=== PATIENT | male | born 1960 | race Caucasian/White ===

== ENCOUNTER 2019-03-28 13:02 | Inpatient (IN) | payer OTHER ==
--- NOTE | 2019-03-28 13:08 | ED ---
GI/ HPI - HPI Summary HPI Summary: This patient is a 59 year old male presenting to [facility] with a chief complaint of GI bleed. The patient states he had an episode of hematemesis after eating breakfast a couple hours ago. He states he had gastric bypass surgery 5 years ago.He states the vomit is bright red and it has occurred [address] Zaidi, surgery, did the gastric bypass on the patient. Pt denies any fever, chills, erythema of eyes, sore throat, CP, SOB, cough, abdominal pain, N/V, dysuria, hematuria, myalgia, edema, rash, or dizziness. - History of Current Complaint Stated Complaint: GI BLEED PER EMS Hx Obtained From: Patient Onset/Duration: Started Hours Ago Associated Signs and Symptoms: Positive: Hematemesis, Vomiting - Additional Pertinent History Primary Care Physician: SONIYA - Allergy/Home Medications Allergies/Adverse Reactions: Allergies Allergy/AdvReac Type Severity Reaction Status Date / Time MS No Known Drug Allergy Allergy Unknown Verified 11/18/15 09:27 [No Known Drug Allergy] Reaction Details ENVIRONMENTAL/HAYFEVER Allergy Runny Nose Uncoded 11/17/15 12:10 PMH/Surg Hx/FS Hx/Imm Hx Endocrine/Hematology History: Reports: Hx Diabetes - TYPE 1, Hx Thyroid Disease - HYPOTHYROIDISM Cardiovascular History: Reports: Hx Coronary Artery Disease - CHOLESTEROL CONTROL WITH MEDICATIONS, Other Cardiovascular Problems/Disorders - DR. VERITO MD: STRESS TEST 11/2013; CARDIAC CATH 12/18/2013 Denies: Hx Hypertension GI History: Reports: Other GI Disorders - GASTRIC BYPASS Denies: Hx Gastroesophageal Reflux Disease Musculoskeletal History: Reports: Hx Arthritis, Other Musculoskeletal History - DJD Sensory History: Reports: Hx Contacts or Glasses - GLASSES TO DRIVE ONLY Denies: Hx Hearing Aid Opthamlomology History: Reports: Hx Contacts or Glasses - GLASSES TO DRIVE ONLY - Surgical History Surgery Procedure, Year, and Place: 1985 MIDLINE HERNIA REPAIR, [facility]. AGE 3 LEFT SMALL FINGER REATTACHMENT. 12/2013 LEFT HEART CATETERIZATION, CORONARY ANGIOGRAM, LEFT VENTRICULOGRAPHY, [place]. 2012 COLONOSCOPY, [facility]. March 2014 Gastric by pass and hernia repair. 2013 ENDOSCOPY, [facility] Hx Anesthesia Reactions: No - Social History Alcohol Use: Rare Substance Use Type: Reports: None Smoking Status (MU): Never Smoked Tobacco Review of Systems Negative: Fever, Chills Negative: Erythema Negative: Sore Throat Negative: Chest Pain Negative: Shortness Of Breath, Cough Positive: Vomiting - Hematemesis. Negative: Abdominal Pain, Nausea Negative: dysuria, hematuria Negative: Edema Negative: Rash Neurological: Other - Neg: Dizziness All Other Systems Reviewed And Are Negative: No Physical Exam - Summary Physical Exam Summary: Constitutional: Well-developed, Well-nourished, Alert. (-) Distressed Skin: Warm, Dry HENT: Normocephalic; Atraumatic Eyes: Conjunctiva normal Neck: Musculoskeletal ROM normal neck. (-) JVD, (-) Stridor, (-) Tracheal deviation Cardio: Rhythm regular, rate normal, Heart sounds normal; Intact distal pulses; The pedal pulses are 2+ and symmetric. Radial pulses are 2+ and symmetric. (-) Murmur Pulmonary/Chest wall: Effort normal. (-) Respiratory distress, (-) Wheezes, (-) Rales Abd: Soft, (-) tenderness, (-) Distension, (-) Guarding, (-) Rebound Musculoskeletal: (-) Edema Lymph: (-) Cervical adenopathy Neuro: Alert, Oriented x3 Psych: Mood and affect Normal Triage Information Reviewed: Yes Vital Signs On Initial Exam: Temp Pulse Resp BP Pulse Ox 97.8 F 96 17 160/70 98 03/28/19 13:10 03/28/19 13:10 03/28/19 13:10 03/28/19 13:10 03/28/19 13:10 Vital Signs Reviewed: Yes Procedures - Sedation Patient Received Moderate/Deep Sedation with Procedure: No GIGU Course/Dx - Course Course Of Treatment: This patient is a 59 year old male presenting to [facility] with a chief complaint of GI bleed/hematemesis. Patient had Gastric Bypass surgery [address] Dior, GI, recommended NPO diet and endoscopy. Dr. Diaz, hospitalist, accepted the patient for admission. The patient was administered Protonix IV and NS in the ED. The plan for admission was discussed with the patient and he was agreeable with this plan. - Diagnoses Provider Diagnoses: Hematemesis - Physician Notifications Discussed Care Of Patient With: Seymour Dior - GI Time Discussed With Above Provider: 13:15 - Recommended NPO diet and endoscopy today Instructed by Provider To: Admit As Inpatient Discharge ED - Sign-Out/Discharge Documenting (check all that apply): Patient Departure - Admission - Discharge Plan Condition: Stable Disposition: ADMITTED TO [facility] Referrals: Analisa Flannery MD [Primary Care Provider] - - Attestation Statements Document Initiated by Scribe: Yes Documenting Scribe: Tiburcio Drummond Provider For Whom Scribe is Documenting (Include Credential): Ced Sherman MD Scribe Attestation: ITiburcio, scribed for Ced Sherman MD on 03/28/19 at 1314. Status of Scribe Document: Ready
[2019-03-28] MEDS ORDERED: NS 0.9% 1000 ML** 1,000 ML IV ONE (13:11)
[2019-03-28] MEDS ORDERED: Pantoprazole* 80 mg IN NS 80 MG/250 ML BAG IV ONE (13:11)
[2019-03-28 13:41] LABS: ABS Lymphocytes 0.8 10^3/ul (1.0-4.8); ABS Monocytes 0.3 10^3/ul (0-0.8); ABS Neutrophils 10.5 10^3/ul (1.5-7.7); Eosinophil % 0.1 %; Hematocrit 34 % (42-52); Hemoglobin 11.6 g/dL (14.0-18.0); Lymphocyte % 6.7 %; Mean Corpuscular HGB Conc 34 g/dL (31-36); Mean Corpuscular Hemoglobin 29 pg (27-31); Mean Corpuscular Volume 86 fL (80-94); Mean Platelet Volume 9.3 fL (7.4-10.4); Nucleated Red Blood Cells % 0.1; Platelet Count 178 10^3/uL (150-450); Red Blood Count 3.98 10^6 /uL (4.18-5.48); Red Cell Distribution Width 13 % (10-15); White Blood Count 11.6 10^3/uL (3.5-10.8)
[2019-03-28 13:52] LABS: Albumin 3.6 g/dL (3.2-5.2); Calcium 8.4 mg/dL (8.6-10.3); Potassium 4.4 mmol/L (3.5-5.0); Total Bilirubin 0.5 mg/dL (0.2-1.0)
[2019-03-28 13:59] LABS: Albumin/Globulin Ratio 1.4 (1-3); BUN/Creatinine Ratio 38.2 (8-20); C Reactive Protein 2.85 mg/L (<8.01); EGFR African American 126.6 (>60); EGFR Non-African American 104.6 (>60); Globulin 2.6 g/dL (2-4); Total Protein 6.2 g/dL (6.4-8.9)
[2019-03-28] MEDS ORDERED: Zolpidem TAB* 10 MG PO PRN (15:22)
[2019-03-28] MEDS ORDERED: Dextrose 50% VIAL 50 ml IV PUSH PRN (15:26)
[2019-03-28] MEDS ORDERED: fentaNYL* 50 MCG/ML 2 ML VIAL (100 MCG VIAL) ONE (16:09)
[2019-03-28] MEDS ORDERED: Midazolam* 1 MG/ML 10 ML VIAL (10 MG) ONE (16:09)
--- NOTE | 2019-03-28 17:15 | HP ---
CC: PRINCESS Ortiz; Dr. Dior * HISTORY AND PHYSICAL: DATE OF ADMISSION: 03/28/19 TIME OF EVALUATION: 2:30 p.m. PRIMARY CARE PROVIDER: PRINCESS Ortiz CONSULTING OPERATIONS PROCESSOR: Dr. Dior. CHIEF COMPLAINT: "I was vomiting blood." HISTORY OF PRESENT ILLNESS: Mr. Paige is a 59-year-old male with a past medical history of obesity, status post Glenis-en-Y gastric bypass; type 2 diabetes; hypertension; hyperlipidemia; hypothyroidism; who presented to the emergency room with complaints of vomiting blood. The patient states that last night he had steak chips with onions and mushrooms for dinner and he went to bed feeling well. 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 He states that he started to feel some "weird sensation" in his stomach as if he were "coming down" with a stomach flu. He stopped the bus and he vomited and reports there was about a tablespoon of blood in the first episode. He called his and told her he was going to [place] and he states that on the way he vomited once, at [place] he vomited 3 to 4 times and he states that at that point the amount of bright red blood was a fourth of a cup. As [place] does not have GI on-call, he was transferred to our emergency room for further evaluation and the patient states that during transport he vomited once more. He states that the strange feeling in his stomach has resolved. He denies any abdominal pain. He had his gastric bypass 5 years ago and he states that he had no issues after that. He denies having endoscopy after the procedure and feels that overall he was doing well. His last bowel movement was this morning described as formed and brown. PAST MEDICAL HISTORY: 1. Obesity, status post Glenis-en-Y gastric bypass in March 2014. 2. Type 2 diabetes. 3. Hypothyroidism. 4. Hypertension. 5. GERD. 6. Hyperlipidemia. PAST SURGICAL HISTORY: 1. Status post laparoscopic Glenis-en-Y gastric bypass in 2013. 2. Status post open ventral hernia repair in 1987. MEDICATION LIST: 1. Lantus 32 units subcutaneously in the morning and 21 units subcutaneously at bedtime. 2. Irbesartan/hydrochlorothiazide 150/12.5 one tablet p.o. daily. 3. Levothyroxine 175 mcg p.o. daily. 4. Simvastatin 10 mg p.o. daily. 5. Zolpidem 12.5 mg p.o. at bedtime as needed for sleep. ALLERGIES: No known drug allergies. FAMILY HISTORY: His father passed at age 98. Mother had a history of diabetes , hypertension, obesity, heart disease, leukemia and passed of colon cancer. SOCIAL HISTORY: No history of tobacco, alcohol, or drug use. 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 Surrogate decision maker is his , Sofiya Paige, phone number is [phone]. REVIEW OF SYSTEMS: A 14-point review of systems was performed and all the pertinent negative and positive findings are in the HPI. PHYSICAL EXAMINATION GENERAL: The patient is a pleasant, obese gentleman, sitting up in the ED stretcher, in no acute distress. VITAL SIGNS: Temperature 97.8, heart rate is 94, respiratory rate is 17, oxygen saturation 98% on room air, blood pressure is 158/68. HEENT: Pupils are equal. Moist mucous membranes. CHEST: Breath sounds present bilaterally with no added sounds. CVS: Normal S1, S2. Regular rate and rhythm. ABDOMEN: Obese, soft, nontender, nondistended. Bowel sounds present. EXTREMITIES: No edema. NEURO: He is alert and oriented x3. Able to move all 4 extremities. Face is symmetric. Speech is clear. DIAGNOSTIC STUDIES/LAB DATA: The patient had a CBC that showed WBC 11.6, hemoglobin 11.6, hematocrit 34, platelets 178 with 90% neutrophils. Chemistry showed a sodium of 140, potassium of 4.4, chloride of 108, bicarb of 26, BUN of 29, creatinine 0.76, glucose is 252, lactic acid is 1.4, calcium is 8.4. LFTs are normal. ASSESSMENT AND PLAN: Mr. Paige is a 59-year-old male with a past medical history of obesity with BMI of 34, type 2 diabetes, hypertension, hyperlipidemia , hypothyroidism, who presents to the emergency room after multiple episodes of hematemesis, who is going to be admitted for an upper gastrointestinal bleed. 1. Upper gastrointestinal bleed. The patient describes hematemesis and has slight elevation of his BUN at 29 with a normal creatinine. I suspect that the patient likely has an anastomotic ulcer as the source of his bleed, but the differential would include peptic ulcer disease, Yvonne-Ovalle tears, and others. GI consultation was requested with Dr. Dior and the patient will have an upper endoscopy done today. We will continue Protonix drip. We will monitor his H and H. 2. Type 2 diabetes. I will reduce his Lantus dose to 15 units twice a day and continue lispro sliding scale. I will also check hemoglobin A1c. 3. Hypertension. It is controlled at this time. I will continue his irbesartan/hydrochlorothiazide with holding parameters. 4. Hypothyroidism. We will continue levothyroxine. 5. DVT prophylaxis: The patient has a score of 3 and pharmacological DVT prophylaxis is contraindicated in the setting of gastrointestinal bleed. The patient will have SCDs. 6. Code status is full. TIME SPENT: Approximately 60 minutes was spent with the patient's interview, medical records review, physical examination to complete this admission, more than half of this time was spent [id number] with the patient and coordination of care. [id number]/[facility] #: [id number] LORIE
--- NOTE | 2019-03-28 17:42 | PN ---
Progress Note - Progress Note Date of Service: 03/28/19 Note: GI Egd note E: nml Pouch: filled with clot, extensive and tediously suctioned, pouch normal GJ anastomosis 2cm ulcer with arterial pulsation. Injected with Epi 8cc 1:[id number] and 2 endoclips. No bleeding After Jejunum: old blood but no active bleeding for area visualized Rec: High risk for rebleed Monitor in ICU PPI gtt H/H q6 Keep 2 units of PRBC on hold at all times Seymour Dior DO 03/28/19 [id number]
[2019-03-28] MEDS: Insulin LISPRO* 1 UNITS UNIT SUBCUT SCH ×2 (18:52→22:27)
[2019-03-28] MEDS: Lactated Ringers 1000 ML Bag* 1,000 ML IV SCH (18:52)
[2019-03-28 19:18] LABS: ABS Lymphocytes 0.8 10^3/ul (1.0-4.8); ABS Monocytes 0.6 10^3/ul (0-0.8); Eosinophil % 0.1 %; Hematocrit 23 % (42-52); Hemoglobin 8.2 g/dL (14.0-18.0); Lymphocyte % 6.6 %; Mean Corpuscular HGB Conc 35 g/dL (31-36); Mean Corpuscular Hemoglobin 30 pg (27-31); Mean Corpuscular Volume 86 fL (80-94); Mean Platelet Volume 9.6 fL (7.4-10.4); Nucleated Red Blood Cells % 0.1; Platelet Count 158 10^3/uL (150-450); Red Blood Count 2.73 10^6 /uL (4.18-5.48); Red Cell Distribution Width 13 % (10-15); White Blood Count 12.4 10^3/uL (3.5-10.8)
--- NOTE | 2019-03-28 20:08 | CONS ---
CC: PRINCESS Ortiz * CONSULTATION REPORT: DATE OF CONSULT: 03/28/19 REQUESTING PHYSICIAN: Eliza Cummings MD REASON FOR CONSULTATION: Hematemesis. HISTORY OF PRESENT ILLNESS: This is a pleasant 59-year-old male with a past medical history of obesity, Glenis-en-Y gastric bypass, diabetes type 2, hypertension, hyperlipidemia, hypothyroidism, who presented to the ER in [place] after vomiting up blood. Yesterday evening, he felt well. He denied any abdominal pain. 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 He states that he started to feel some kind of cramping on to his stomach. He stopped the bus and then vomited and admits to as about a tablespoon of blood in the first episode. He then went to the [place] ER where he vomited up about a cupful of blood multiple times. He was then transferred to our emergency room as [place] does not have GI coverage. He denies any Motrin, ibuprofen, Aleve. He denies any alcohol use. He does not smoke. His gastric bypass surgery was in 2013. He denies any abdominal pain. Denies any diarrhea or constipation. He denies any black stools. He had some nausea and vomiting, but did not have a vomiting prodrome prior to his hematemesis. Denies any weight loss or gain. He is kind of stabilized around 250 pounds or so after his initial loss in the bypass. He states that he had a colonoscopy a few years ago that was completely cleaned; however, he does have a family history of colorectal cancer and was recommended another one in 5 years. The remainder of the 14-point review of systems is grossly negative. PAST MEDICAL HISTORY: 1. Obesity. 2. Glenis-en-Y gastric bypass in March 2014. 3. Type 2 diabetes. 4. Hypothyroidism. 5. Hypertension. 6. GERD. 7. Hyperlipidemia. PAST SURGICAL HISTORY: 1. Glenis-en-Y in 2013. 2. Open ventral hernia repair. 3. Colonoscopy a few years ago. MEDICATION LIST: 1. Lantus. 2. Irbesartan. 3. Hydrochlorothiazide. 4. Levothyroxine. 5. Simvastatin. 6. Zolpidem. ALLERGIES: No known drug allergies. FAMILY HISTORY: Maternal colorectal cancer. SOCIAL HISTORY: Denies any tobacco, alcohol, or drug use. 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 REVIEW OF SYSTEMS: Remainder of the 14-point review of systems is grossly negative. PHYSICAL EXAM: Vital Signs: Blood pressure is 160/70, pulse is 96, temperature is 97.8, he is 98% on room air. In general, alert and oriented x3, in no acute distress. HEENT: Atraumatic, normocephalic. Pupils equal, round, reactive to light. Extraocular movements are intact. Conjunctivae are pink. Sclerae are anicteric. Cardiovascular: Tachycardic. S1, S2. Respiratory: Clear to auscultation bilaterally. Abdomen: Soft, nontender, nondistended. Bowel sounds positive, obese. Extremities: No clubbing, no cyanosis, no edema. Neuro: Nonfocal. Psych: Appropriate mood and affect. DIAGNOSTIC STUDIES/LAB DATA: Hemoglobin 11.6, BUN 29, creatinine 0.76. Bilirubin 0.5, AST 14, ALT 15, platelet count is 178. ASSESSMENT AND PLAN: 1. This is a 59-year-old male with history of Glenis-en-Y gastric bypass, presenting with hematemesis, a wide differential, but top of this would be anastomotic ulcer. He does not have smoking or NSAIDs to precipitate, but still strong possibility, Yvonne-Ovalle is less likely. His platelet count is reasonable. I do not see any evidence of cirrhosis. He agrees with IV PPI drip. We will keep H and Hs every 6 hours. Recommend keeping the head of the bed elevated given the hematemesis. In addition, keep 2 units of PRBCs on hold. We will plan for emergent upper endoscopy today given that he is hemodynamically stable. 2. Acute blood loss anemia secondary to #1. 3. History of gastric bypass. We will keep n.p.o. for now. [id number]/[facility] #: [id number] [facility]INE HOSPITALChepe
[2019-03-28] MEDS: Insulin GLARGINE(*) 1 UNITS UNIT SUBCUT SCH (22:26)
--- NOTE | 2019-03-29 00:52 | PRO ---
CC: Dr. Yonas Gray; PRINCESS Ortiz * EGD REPORT: DATE OF PROCEDURE: 03/28/19 - ROOM #ICU-05 PRIMARY CARE PROVIDER: PRINCESS Ortiz INDICATION FOR PROCEDURE: Hematemesis. PROCEDURE PERFORMED: Complete esophagogastroduodenoscopy with hemostasis, Endoclip placement, and epinephrine injection. MEDICATIONS GIVEN: Include 16 mg IV midazolam. ESTIMATED BLOOD LOSS: About 10 mL. DESCRIPTION OF PROCEDURE: After the EGD procedure, including the risks, benefits, and alternatives, with the risks not limited to perforation, surgery, missed lesions, and/or were explained to the patient, written informed consent was obtained, IV medication was given, and a bite block was placed between the teeth. The adult Olympus gastroscope was then inserted into the patient's oropharynx, into the tubular esophagus. The distal esophagus had evidence of fresh blood after thorough washing. There was no distinct lesion within the esophagus. The scope was then advanced to the lower esophageal sphincter into the gastric pouch. There was extensive clot that filled the entirety of the lumen of the gastric pouch. I vigorously suctioned this repetitively and eventually was able to clear the majority of the clots and then push the remainder into the jejunum. I pushed even to the jejunum, there was no evidence of active bleeding there. I then returned to the pouch and washed the remainder of the wall. No active bleeding was seen within the pouch. However, at the GJ junction, a large 2 cm ulcer was visualized with arterial squirt. I injected the area with 8 cc of epinephrine circumferentially with good effect and then placed 2 Endoscopic clips over the squirting vessel. At the conclusion of this, no bleeding was noted. The scope was then removed from the patient. He tolerated the procedure well. I transferred the patient to the ICU at the conclusion of the procedure given the large upper GI bleed that was occurring. IMPRESSION: Forced grade 1A gastrojejuno-anastomotic ulceration status post endoscopic epinephrine injection and Endoclip placement with hemostasis. RECOMMENDATION: High risk for rebleeding given the classification and arterial squirt. No evidence of active bleeding at this time. Would monitor in ICU at least overnight. Monitor his blood count, suspect there will be an initial drop. We will keep the patient on an IV Protonix drip at all times for at least 72 hours. Avoid NSAIDs. Interestingly, he does not smoke or use NSAIDs, so the etiology of this ulceration may be purely anastomotic. We will keep H and H every 6 hours, keep 2 units of PRBCs on hold, keep the head of the bed elevated. I have discussed the case with Dr. Cummings, the patient's hospitalist. [id number]/[facility] #: [id number] [facility]
[2019-03-29] MEDS: Pantoprazole* 80 mg IN NS 80 MG/250 ML BAG IV SCH ×3 (01:25→21:14)
[2019-03-29] MEDS: Insulin LISPRO* 1 UNITS UNIT SUBCUT SCH ×5 (01:31→21:36)
[2019-03-29 01:39] LABS: Hematocrit 20 % (42-52); Hemoglobin 7.2 g/dL (14.0-18.0)
[2019-03-29] MEDS: Lactated Ringers 1000 ML Bag* 1,000 ML IV SCH ×2 (04:52→15:34)
[2019-03-29] MEDS: Levothyroxine INJ* 100 MCG/5 ML VIAL IV SCH (05:26)
[2019-03-29] MEDS: Atorvastatin* 10 MG TAB PO SCH ×2 (08:11→09:49)
[2019-03-29 08:12] LABS: ABS Eosinophils 0.1 10^3/ul (0-0.6); ABS Lymphocytes 2.2 10^3/ul (1.0-4.8); ABS Monocytes 0.6 10^3/ul (0-0.8); Eosinophil % 0.9 %; Hematocrit 22 % (42-52); Hemoglobin 7.8 g/dL (14.0-18.0); Lymphocyte % 22.1 %; Mean Corpuscular HGB Conc 36 g/dL (31-36); Mean Corpuscular Hemoglobin 31 pg (27-31); Mean Corpuscular Volume 85 fL (80-94); Mean Platelet Volume 9.1 fL (7.4-10.4); Platelet Count 179 10^3/uL (150-450); Red Blood Count 2.55 10^6 /uL (4.18-5.48); Red Cell Distribution Width 13 % (10-15); White Blood Count 9.8 10^3/uL (3.5-10.8)
[2019-03-29 08:26] LABS: Urine Appearance Clear; Urine Bilirubin Negative (Negative); Urine Blood Negative (Negative); Urine Color Yellow; Urine Glucose 3+(>=500 mg/dL) (Negative); Urine Ketones Trace (Negative); Urine Nitrite Negative (Negative); Urine Protein Negative (Negative); Urine Specific Gravity 1.026 (1.010-1.030); Urine Urobilinogen Negative (Negative)
[2019-03-29 08:37] LABS: BUN/Creatinine Ratio 45.9 (8-20); Calcium 7.8 mg/dL (8.6-10.3); EGFR African American 130.5 (>60); EGFR Non-African American 107.9 (>60); Potassium 3.5 mmol/L (3.5-5.0)
[2019-03-29] MEDS ORDERED: Losartan TAB* 25 MG PO SCH (09:00)
[2019-03-29] MEDS ORDERED: Hydrochlorothiazide TAB* 25 MG PO SCH (09:00)
[2019-03-29] MEDS: Insulin GLARGINE(*) 1 UNITS UNIT SUBCUT SCH ×2 (09:49→21:36)
--- NOTE | 2019-03-29 11:45 | PN ---
Progress Note - Progress Note Date of Service: 03/29/19 Note: Surgery Progress Note Patient is a 59 yo M with a history of morbid obesity s/p R-Y gastric bypass with Dr. Zaidi in 2013. Yesterday the patient was transferred [place] [facility] [place]. He said he was in his normal state of health until yesterday morning when he began to vomit blood. He says he had never had this happen before. He does not take NSAIDs routinely. He has been doing well since his bypass surgery and has had no complications. He underwent an upper endoscopy with Dr. Dior yesterday where a 2-3cm actively bleeding ulcer was identified at the gastro-jejunstomy. The ulcer base was successfully clipped and injected with epinephrine. I discussed this with Dr. Dior yesterday. Today he is doing well and his Hct has been stable at 20--> 22, although he did have a significant blood loss from his admission. He is comfortable, has no complaints of pain, and has had no further bleeding. He is in the ICU for close monitoring. On exam his abdomen is soft and non tender. I discussed with him that marginal ulcerations can sometimes occur at the G-J anastomosis after bypass surgery. He can expect he may have melena after his acute UGI bleed. After discharge I have asked him to follow up with [facility] as he has not been seen in several years since surgery.
--- NOTE | 2019-03-29 13:32 | PN ---
Subjective Date of Service: 03/29/19 Interval History: HOSPITALIST PROGRESS NOTE Patient seen and examined at bedside. Care reviewed and d/w Alfredo Olvera RN. He feels well today. Denies abdominal pain, N/V. No dizziness, lightheadedness, CP or palpitations. Had a brown BM today with "specks" of blood, as per RN. Family History: Unchanged from Admission Social History: Unchanged from Admission Past Medical History: Unchanged from Admission Objective Active Medications: Atorvastatin Calcium (Lipitor*) 5 mg PO DAILY [facility] Last Admin: 03/29/19 09:49 Dose: 5 mg Dextrose (Dextrose 50% Vial 50 Ml*) 25 ml IV PUSH .FOR FS < 60 - SS PRN PRN Reason: FS < 60 Lactated Ringer's (Lactated Ringers 1000 Ml Bag*) 1,000 mls @ 100 mls/hr IV PER RATE [facility] Last Admin: 03/29/19 04:52 Dose: 100 mls/hr Pantoprazole Sodium (Protonix Iv Bag*) 80 mg in 250 mls @ 25 mls/hr IV Q10H [facility] Last Admin: 03/29/19 11:33 Dose: 25 mls/hr Insulin Glargine (Lantus(*)) 15 units SUBCUT Q12H [facility] Last Admin: 03/29/19 09:49 Dose: 15 units Insulin Human Lispro (Humalog*) 0 units SUBCUT ACHS [facility]; Protocol Last Admin: 03/29/19 12:07 Dose: 3 units Levothyroxine Sodium (Synthroid Inj*) 88 mcg IV 0600 [facility] Last Admin: 03/29/19 05:26 Dose: 88 mcg Zolpidem Tartrate (Ambien Tab*) 10 mg PO BEDTIME PRN; Protocol PRN Reason: SLEEP Vital Signs - 8 hr 03/29/19 03/29/19 03/29/19 05:30 06:00 06:30 Pulse Rate 77 72 74 Respiratory 16 15 15 Rate Blood Pressure 128/58 95/56 106/55 (mmHg) O2 Sat by Pulse 98 97 99 Oximetry 03/29/19 03/29/19 03/29/19 07:00 07:44 08:00 Pulse Rate 94 85 90 Respiratory 13 16 18 Rate Blood Pressure 132/59 121/59 104/60 (mmHg) O2 Sat by Pulse 100 100 98 Oximetry 03/29/19 03/29/19 03/29/19 08:30 09:00 09:30 Pulse Rate 87 82 81 Respiratory 15 15 14 Rate Blood Pressure 95/54 102/54 121/50 (mmHg) O2 Sat by Pulse 98 97 98 Oximetry 03/29/19 03/29/19 03/29/19 09:53 10:00 10:01 Pulse Rate 83 78 Respiratory 15 18 15 Rate Blood Pressure 130/53 (mmHg) O2 Sat by Pulse 100 100 Oximetry 03/29/19 03/29/19 03/29/19 10:30 11:00 11:30 Pulse Rate 91 82 78 Respiratory 21 15 2 Rate Blood Pressure 123/59 117/53 107/50 (mmHg) O2 Sat by Pulse 99 100 99 Oximetry 03/29/19 12:00 Pulse Rate 78 Respiratory 15 Rate Blood Pressure 113/51 (mmHg) O2 Sat by Pulse 100 Oximetry Oxygen Devices in Use Now: None Appearance: Pleasant gentleman sitting up in a recliner in NAD. Eyes: No Scleral Icterus Ears/Nose/Mouth/Throat: Mucous Membranes Moist - pale Neck: Trachea Midline Respiratory: Symmetrical Chest Expansion and Respiratory Effort, Clear to Auscultation Cardiovascular: NL Sounds; No Murmurs; No JVD, RRR Abdominal: NL Sounds; No Tenderness; No Distention - obese Extremities: No Edema Neurological: Alert and Oriented x 3, NL Muscle Strength and Tone Result Diagrams: 03/29/19 07:55 03/29/19 07:55 Assess/Plan/Problems-Billing Assessment: Mr Paige is a 59yo M with PMH of obesity s/p RnY in 2013, type 2 DM, hypothyroidism, HTN, GERD, HLD, who presented to ED with c/o hematemesis, found to have anastomotic ulcer. - Patient Problems (1) Acute blood loss anemia Comment: - Hb dropped from 12 to 7.2. - Patient declined PRBC transfusion last night. Lengthy conversation today - he' s concerned about risks of Hepatitis B/C with transfusions; we discussed R/B/A and at this point he would agree with transfusion if Hb<7.0. - Continue to monitor H/H q6h. (2) Upper GI bleed Comment: - EGD revealed 2 cm anastomotic ulcer at the GJ junction, with arterial squirt, s/p epinephrine injection and Endoclip. - GI input appreciated. - Continue Protonix drip. - Continue to monitor in ICU. (3) Hypothyroid Comment: - Continue Levothyroxine. (4) HTN (hypertension) Comment: - ARB and HCTZ on hold in the setting of UGI bleed with soft BP. - Continue to monitor. (5) Diabetes mellitus, type 2 Comment: - Chronically uncontrolled with A1c 9.0. - Continue Lantus and Lispro SS. (6) DVT prophylaxis Comment: - Pharmacological prophylaxis contraindicated in the setting of GI bleed. - SCDs. (7) Full code status
[2019-03-29 14:30] LABS: Hematocrit 20 % (42-52)
--- NOTE | 2019-03-29 15:47 | PN ---
Progress Note - Progress Note Date of Service: 03/29/19 Note: GI Follow up Patient seen and examined. Black stool. No pain. NO lightheaded or dizziness. No emesis. Tolerating liquids VS: 113/51, P-78, R-15, Afebril, 100% RA Gen: alert, oriented x3 HEent: at/nc, perrla, eomi, no jvp, conjunctiva pink CVS: RRR s1s2 Resp: cta b/l Abd: soft, nt, nd, bs+, obese Ext: no c/c/e Lab Hgb 7.2->7.8->7 No transfusion Impression Acute blood loss anemia 2/2 Michael 1A Gastro-jejunal anastomotic ulceration Rec: No clear etiology (no NSAID or smoking which is typical of anastomotic ulceration). Ulcer is high risk for rebleeding given Michael 1A. Current tachycardia and hypotension have resolved. His h/h has remainded stable in 7s after the initial drop from bleed. No further bleeding at conclusion of EGD on 03/28. Continue to monitor in ICU today. Appreciate surgical input. Will need 72 hours of IV PPI. Then 40mg PO BID x3 months with repeat EGD at that time with me. Expect melena to improve in next 24-48 hours Seymour Dior DO 03/29/19 [id number]
[2019-03-29 21:15] LABS: Hematocrit 21 % (42-52); Hemoglobin 7.3 g/dL (14.0-18.0)
[2019-03-30] MEDS: Lactated Ringers 1000 ML Bag* 1,000 ML IV SCH (00:43)
[2019-03-30] MEDS: Levothyroxine INJ* 100 MCG/5 ML VIAL IV SCH (05:10)
[2019-03-30 05:31] LABS: ABS Eosinophils 0.1 10^3/ul (0-0.6); ABS Lymphocytes 1.4 10^3/ul (1.0-4.8); ABS Monocytes 0.6 10^3/ul (0-0.8); ABS Neutrophils 5.1 10^3/ul (1.5-7.7); Eosinophil % 1.5 %; Hematocrit 19 % (42-52); Hemoglobin 6.6 g/dL (14.0-18.0); Lymphocyte % 19.2 %; Mean Corpuscular HGB Conc 34 g/dL (31-36); Mean Corpuscular Hemoglobin 30 pg (27-31); Mean Corpuscular Volume 87 fL (80-94); Mean Platelet Volume 8.6 fL (7.4-10.4); Nucleated Red Blood Cells % 0.1; Platelet Count 149 10^3/uL (150-450); Red Blood Count 2.23 10^6 /uL (4.18-5.48); Red Cell Distribution Width 13 % (10-15); White Blood Count 7.2 10^3/uL (3.5-10.8)
[2019-03-30 05:46] LABS: BUN/Creatinine Ratio 33.8 (8-20); Calcium 7.7 mg/dL (8.6-10.3); EGFR African American 130.5 (>60); EGFR Non-African American 107.9 (>60); Potassium 3.3 mmol/L (3.5-5.0)
[2019-03-30] MEDS: Pantoprazole* 80 mg IN NS 80 MG/250 ML BAG IV SCH ×2 (07:59→18:41)
[2019-03-30] MEDS: KCL 10 MEQ/50 ML IVPREMIX* 10 MEQ/50 ML BAG IV SCH ×4 (08:32→12:16)
[2019-03-30] MEDS: Insulin LISPRO* 1 UNITS UNIT SUBCUT SCH ×4 (08:47→21:08)
[2019-03-30] MEDS: Atorvastatin* 10 MG TAB PO SCH (09:22)
[2019-03-30] MEDS: Insulin GLARGINE(*) 1 UNITS UNIT SUBCUT SCH ×2 (09:22→21:09)
[2019-03-30 09:38] LABS: Hematocrit 19 % (42-52); Hemoglobin 6.6 g/dL (14.0-18.0)
--- NOTE | 2019-03-30 11:25 | PN ---
Subjective Date of Service: 03/30/19 Interval History: HOSPITALIST PROGRESS NOTE Patient seen and examined at bedside. Care reviewed and d/w Bhavana Meadows RN. He offers no new complaints today. Declined trans Family History: Unchanged from Admission Social History: Unchanged from Admission Past Medical History: Unchanged from Admission Objective Active Medications: Atorvastatin Calcium (Lipitor*) 5 mg PO DAILY [facility] Last Admin: 03/30/19 09:22 Dose: 5 mg Dextrose (Dextrose 50% Vial 50 Ml*) 25 ml IV PUSH .FOR FS < 60 - SS PRN PRN Reason: FS < 60 Pantoprazole Sodium (Protonix Iv Bag*) 80 mg in 250 mls @ 25 mls/hr IV Q10H [facility] Last Admin: 03/30/19 07:59 Dose: 25 mls/hr Potassium Chloride (Potassium Chloride 10 Meq/50 Ml Ivpremix*) 10 meq in 50 mls @ 50 mls/hr IV Q1H [facility] Stop: 03/30/19 11:59 Last Admin: 03/30/19 10:41 Dose: 50 mls/hr Insulin Glargine (Lantus(*)) 15 units SUBCUT Q12H [facility] Last Admin: 03/30/19 09:22 Dose: 15 units Insulin Human Lispro (Humalog*) 0 units SUBCUT ACHS [facility]; Protocol Last Admin: 03/30/19 08:47 Dose: Not Given Levothyroxine Sodium (Synthroid Inj*) 88 mcg IV 0600 [facility] Last Admin: 03/30/19 05:10 Dose: 88 mcg Zolpidem Tartrate (Ambien Tab*) 10 mg PO BEDTIME PRN; Protocol PRN Reason: SLEEP Vital Signs - 8 hr 03/30/19 03/30/19 03/30/19 04:00 05:00 06:00 Temperature 99.5 F Pulse Rate 83 81 89 Respiratory 16 16 18 Rate Blood Pressure 144/64 132/57 153/64 (mmHg) O2 Sat by Pulse 98 95 96 Oximetry 03/30/19 03/30/19 07:00 08:00 Temperature 99.3 F Pulse Rate 81 Respiratory 12 Rate Blood Pressure 127/56 (mmHg) O2 Sat by Pulse 95 Oximetry Oxygen Devices in Use Now: None Appearance: Pleasant obese gentleman sitting up in bed in NAD. Eyes: No Scleral Icterus Ears/Nose/Mouth/Throat: Mucous Membranes Moist Neck: Trachea Midline Respiratory: Symmetrical Chest Expansion and Respiratory Effort, Clear to Auscultation Cardiovascular: NL Sounds; No Murmurs; No JVD, RRR Abdominal: NL Sounds; No Tenderness; No Distention Extremities: No Edema Neurological: Alert and Oriented x 3, NL Muscle Strength and Tone Result Diagrams: 03/30/19 09:30 03/30/19 05:18 Assess/Plan/Problems-Billing Assessment: Mr Paige is a 59yo M with PMH of obesity s/p RnY in 2013, type 2 DM, hypothyroidism, HTN, GERD, HLD, who presented to ED with c/o hematemesis, found to have anastomotic ulcer. - Patient Problems (1) Acute blood loss anemia Comment: - Hb dropped from 12 to 6.6. - Patient declined PRBC transfusion last night again. Lengthy conversation today - he verbalizes concern about risks of Hepatitis B/C with transfusions; we discussed R/B/A once more and at this point he would agree with transfusion if repeat Hb<7.0. - Continue to monitor H/H q6h. (2) Upper GI bleed Comment: - EGD revealed 2 cm anastomotic ulcer at the GJ junction, with arterial squirt, s/p epinephrine injection and Endoclip. - D/w GI - does not seem to be actively bleeding at this time, but ulcer was a high risk one. Tentative plan for repeat EGD in AM for ulcer re-evaluation. - Continue Protonix drip. - Continue to monitor in ICU. (3) Hypothyroid Comment: - Continue Levothyroxine. (4) HTN (hypertension) Comment: - ARB and HCTZ on hold in the setting of UGI bleed with soft BP. - Continue to monitor. (5) Diabetes mellitus, type 2 Comment: - Chronically uncontrolled with A1c 9.0. - Continue Lantus and Lispro SS. (6) DVT prophylaxis Comment: - Pharmacological prophylaxis contraindicated in the setting of GI bleed. - SCDs. (7) Full code status Status and Disposition: Inpatient. Continue to monitor in ICU.
[2019-03-30 17:13] LABS: Hematocrit 23 % (42-52); Hemoglobin 7.8 g/dL (14.0-18.0)
--- NOTE | 2019-03-30 23:36 | PN ---
Progress Note - Progress Note Date of Service: 03/30/19 Note: GI Follow Up- delayed entry. Patient seen and examined at 1300 03/30/19 Feeling well. No pain. No lightheadedness or dizziness. Has dark stool but less so today. Hgb down to 6.6, awaiting transfusion VS: 142/62, P-85, R-18, T-97 Gen: alert and oriented x3, NAD HEENT: at/nc, perrla, eomi, no jvp, conjunctiva mild pallor CVS: RRR s1s2 Resp: cta b/l Abd: soft, nt, ,nd, bs+ Ext: no c/c/e Lab: Hgb 6.6->6.6 Impression Acute blood loss anemia 2/2 GJ anastomotic ulceration status post endoscopic intervention Rec: Hemodynamically stable. Melena is decreasing but h/h down to 6.6. Still suspect lag effect. Will be getting transfused. Continue h/h q6, transfuse prn to keep Hgb >7. If still decreasing on 03/31 and or melena will consider second look giving high risk features of ulceration (Michael 1A). Seymour Dior DO 03/30/19 [id number]
[2019-03-31 02:11] LABS: Hematocrit 20 % (42-52); Hemoglobin 6.9 g/dL (14.0-18.0)
[2019-03-31] MEDS: Pantoprazole* 80 mg IN NS 80 MG/250 ML BAG IV SCH ×2 (04:50→14:00)
[2019-03-31] MEDS: Levothyroxine INJ* 100 MCG/5 ML VIAL IV SCH (05:42)
[2019-03-31 05:43] LABS: Calcium 7.5 mg/dL (8.6-10.3); EGFR African American 132.6 (>60); EGFR Non-African American 109.6 (>60); Potassium 3.8 mmol/L (3.5-5.0)
--- NOTE | 2019-03-31 08:13 | PN ---
Subjective Date of Service: 03/31/19 Interval History: No abdominal pain. Brown BM yesterday evening. Tolerated full liquid diet yesterday. No new c/o. Family History: Unchanged from Admission Social History: Unchanged from Admission Past Medical History: Unchanged from Admission Objective Active Medications: Atorvastatin Calcium (Lipitor*) 5 mg PO DAILY [facility] Last Admin: 03/30/19 09:22 Dose: 5 mg Dextrose (Dextrose 50% Vial 50 Ml*) 25 ml IV PUSH .FOR FS < 60 - SS PRN PRN Reason: FS < 60 Pantoprazole Sodium (Protonix Iv Bag*) 80 mg in 250 mls @ 25 mls/hr IV Q10H [facility] Last Admin: 03/31/19 04:50 Dose: 25 mls/hr Insulin Glargine (Lantus(*)) 15 units SUBCUT Q12H [facility] Last Admin: 03/30/19 21:09 Dose: 15 units Insulin Human Lispro (Humalog*) 0 units SUBCUT ACHS [facility]; Protocol Last Admin: 03/30/19 21:08 Dose: 6 units Levothyroxine Sodium (Synthroid Inj*) 88 mcg IV 0600 [facility] Last Admin: 03/31/19 05:42 Dose: 88 mcg Zolpidem Tartrate (Ambien Tab*) 10 mg PO BEDTIME PRN; Protocol PRN Reason: SLEEP Vital Signs - 8 hr 03/31/19 03/31/19 03/31/19 01:00 02:00 03:00 Temperature 98.2 F Pulse Rate 84 72 71 Respiratory 15 14 15 Rate Blood Pressure 144/74 138/68 137/62 (mmHg) O2 Sat by Pulse 100 98 98 Oximetry 03/31/19 03/31/19 03/31/19 03:55 04:00 04:17 Temperature Pulse Rate 72 70 69 Respiratory 14 15 15 Rate Blood Pressure 134/60 132/57 (mmHg) O2 Sat by Pulse 97 97 97 Oximetry 03/31/19 03/31/19 03/31/19 05:00 05:14 07:31 Temperature 98.9 F 98.3 F Pulse Rate 67 Respiratory 15 Rate Blood Pressure 122/57 (mmHg) O2 Sat by Pulse 98 Oximetry Oxygen Devices in Use Now: None Appearance: Alert, partly up in ICU bed. In good spirits. Looks comfortable. Eyes: No Scleral Icterus Respiratory: Symmetrical Chest Expansion and Respiratory Effort, Clear to Auscultation, Clear to Percussion Cardiovascular: NL Sounds; No Murmurs; No JVD, RRR, No Edema, - Extremities: No Edema, No Clubbing, Cyanosis, - Skin: No Rash or Ulcers, No Nodules or Sclerosis, - Neurological: Alert and Oriented x 3, NL Sensation Result Diagrams: 03/31/19 01:50 03/31/19 05:15 Microbiology and Other Data: Microbiology 03/28/19 19:00 Nasal Screen MRSA (PCR) - Final Nasal Mrsa Not Detected Assess/Plan/Problems-Billing Assessment: Mr Paige is a 59yo M with PMH of obesity s/p RnY in 2013, type 2 DM, hypothyroidism, HTN, GERD, HLD, who presented to ED with c/o hematemesis, found to have anastomotic ulcer. - Patient Problems (1) Upper GI bleed Current Visit: Yes Status: Acute Code(s): K92.2 - GASTROINTESTINAL HEMORRHAGE, UNSPECIFIED SNOMED Code(s): 61253715 Comment: - EGD revealed 2 cm anastomotic ulcer at the GJ junction, with arterial squirt, s/p epinephrine injection and Endoclip. Does not seem to be actively bleeding 03/31 but ulcer was a high risk one. Will discuss with GI service, ? transfer out of ICU 03/31. - Continue Protonix drip. - Continue to monitor in ICU. (2) Hypothyroid Current Visit: Yes Status: Acute Code(s): E03.9 - HYPOTHYROIDISM, UNSPECIFIED SNOMED Code(s): 68979837 Comment: - Continue Levothyroxine. Addon TSH 03/31. (3) HTN (hypertension) Current Visit: Yes Status: Chronic Code(s): I10 - ESSENTIAL (PRIMARY) HYPERTENSION SNOMED Code(s): 85395910 Comment: - ARB and HCTZ on hold in the setting of UGI bleed with soft BP. - Continue to monitor. (4) Diabetes mellitus, type 2 Current Visit: Yes Status: Chronic Comment: - Chronically uncontrolled with A1c 9.0. - Continue Lantus and Lispro SS. (5) HLD (hyperlipidemia) Current Visit: No Status: Chronic Code(s): E78.5 - HYPERLIPIDEMIA, UNSPECIFIED SNOMED Code(s): 93144855 Comment: Continue statin. Status and Disposition: Inpatient. Continue to monitor in ICU.
[2019-03-31] MEDS: Insulin LISPRO* 1 UNITS UNIT SUBCUT SCH ×4 (09:03→21:23)
[2019-03-31] MEDS: Insulin GLARGINE(*) 1 UNITS UNIT SUBCUT SCH ×2 (09:04→17:55)
[2019-03-31 09:21] LABS: Hematocrit 24 % (42-52); Hemoglobin 8.2 g/dL (14.0-18.0)
[2019-03-31] MEDS: Atorvastatin* 10 MG TAB PO SCH ×2 (09:52→17:55)
[2019-03-31] MEDS ORDERED: Magnesium Sulfate 2 GM IV (Premix) IVPB ONE (11:00)
--- NOTE | 2019-03-31 16:01 | PN ---
Progress Note - Progress Note Date of Service: 03/31/19 Note: pt seen in ICU; sitting up in chair; "I feel great." trace dark stools, no abd pain, tolerating clears Vs: 98.2, 146/65, 76 gen: nad, alert abd: +bs, obese, soft, nt/nd Hgb 8.2<-------6.9, s/p 1 U PRBC, total of 2 U sofar BUN 19 UGI bleed, stable, no s/s of rebleeding, continue IV protonix, pt moving to floor, advance diet, watch for rebleed, gi to follow Jose Sparks MD [facility]
[2019-03-31 17:56] LABS: Hematocrit 25 % (42-52); Hemoglobin 8.6 g/dL (14.0-18.0)
[2019-04-01] MEDS: Pantoprazole* 80 mg IN NS 80 MG/250 ML BAG IV SCH ×2 (00:53→09:23)
[2019-04-01] MEDS: Insulin GLARGINE(*) 1 UNITS UNIT SUBCUT SCH ×2 (04:49→17:31)
[2019-04-01] MEDS: Levothyroxine TAB* 175 MCG TAB PO SCH (04:49)
[2019-04-01 06:00] LABS: ABS Basophils 0.1 10^3/ul (0-0.2); ABS Eosinophils 0.1 10^3/ul (0-0.6); ABS Lymphocytes 1.1 10^3/ul (1.0-4.8); ABS Monocytes 0.7 10^3/ul (0-0.8); ABS Neutrophils 5.2 10^3/ul (1.5-7.7); Eosinophil % 2.1 %; Hematocrit 24 % (42-52); Hemoglobin 8.4 g/dL (14.0-18.0); Lymphocyte % 15.3 %; Mean Corpuscular HGB Conc 35 g/dL (31-36); Mean Corpuscular Hemoglobin 30 pg (27-31); Mean Corpuscular Volume 86 fL (80-94); Mean Platelet Volume 8.7 fL (7.4-10.4); Nucleated Red Blood Cells % 0.1; Platelet Count 185 10^3/uL (150-450); Red Blood Count 2.77 10^6 /uL (4.18-5.48); Red Cell Distribution Width 13 % (10-15); White Blood Count 7.2 10^3/uL (3.5-10.8)
[2019-04-01] MEDS: Insulin LISPRO* 1 UNITS UNIT SUBCUT SCH ×4 (09:23→21:11)
--- NOTE | 2019-04-01 12:08 | PN ---
Progress Note - Progress Note Date of Service: 04/01/19 SOAP: Subjective: []patient seen and examined earlier today. His chart was reviewed. Marginal ulcer that showed significant bleeding. Approximately 2 cm in size. Injected and clipped and patient has since done well with no additional hematemesis. Patient has required a transfusion of one unit. Overall, patient feeling well and wishes to go home. Patient is status post gastric bypass with good weight loss and was kept over 100 pounds off. He was lost to follow-up when he felt that our offices discharged him from bariatric standpoint. I instructed him that that is not hypertension. Patient denied any other of bleeding in the past. patient does not use NSAIDs except with a very few doses over the summer. He is a nonsmoker. Objective: Afebrile, vital signs stable abdomen: Soft, nondistended, nontender well-healed surgical incisions. No masses or hernias. Assessment: bleeding marginal ulcer 5 years out of gastric bypass surgery. Hemodynamically stable at this time. Plan: No aggravating factors for this marginal ulcer. Gastric bypass surgery does present with potential complication of marginal ulceration and certainly these can bleed or perforate. Patient will require a repeat endoscopy going forward. If he shows full healing, the plan will be for watchful waiting. If there is no full healing, then we can consider strongly a revision of the gastrojejunostomy. The patient should have a repeat bleed, then we can also consider revisionary gastric bypass surgery. This was discussed with patient. Patient should continue with proton pump inhibitor, follow up at bariatric surgery, and follow-up gastroenterology.
--- NOTE | 2019-04-01 14:56 | PN ---
Subjective Date of Service: 04/01/19 Interval History: Patient seen in his room sitting his chair, doing well. no active bleed. tolerating po. awaiting final plan and follow up form GI . Currently on protonix drip day # 3. will transition to PO in am Past Medical History: Unchanged from Admission Objective Active Medications: Atorvastatin Calcium (Lipitor*) 5 mg PO QPM [facility] Last Admin: 03/31/19 17:55 Dose: 5 mg Dextrose (Dextrose 50% Vial 50 Ml*) 25 ml IV PUSH .FOR FS < 60 - SS PRN PRN Reason: FS < 60 Pantoprazole Sodium (Protonix Iv Bag*) 80 mg in 250 mls @ 25 mls/hr IV Q10H [facility] Last Admin: 04/01/19 09:23 Dose: 25 mls/hr Insulin Glargine (Lantus(*)) 10 units SUBCUT Q12H [facility] Last Admin: 04/01/19 04:49 Dose: 10 unit Insulin Human Lispro (Humalog*) 0 units SUBCUT ACHS [facility]; Protocol Last Admin: 04/01/19 12:47 Dose: 6 units Levothyroxine Sodium (Synthroid Tab*) 175 mcg PO DAILY@0600 [facility] Last Admin: 04/01/19 04:49 Dose: 175 mcg Zolpidem Tartrate (Ambien Tab*) 10 mg PO BEDTIME PRN; Protocol PRN Reason: SLEEP Vital Signs - 8 hr 04/01/19 04/01/19 04/01/19 07:41 08:00 11:54 Temperature 98.6 F 98.5 F Pulse Rate 77 79 Respiratory 18 20 20 Rate Blood Pressure 146/55 141/51 (mmHg) O2 Sat by Pulse 98 99 Oximetry Oxygen Devices in Use Now: None Appearance: awake, alert. no distress Eyes: No Scleral Icterus Ears/Nose/Mouth/Throat: NL Teeth, Lips, Gums, Clear Oropharnyx, Mucous Membranes Moist Neck: NL Appearance and Movements; NL JVP, Trachea Midline Respiratory: Symmetrical Chest Expansion and Respiratory Effort, Clear to Auscultation Cardiovascular: NL Sounds; No Murmurs; No JVD, No Edema Abdominal: NL Sounds; No Tenderness; No Distention Extremities: No Edema Result Diagrams: 04/01/19 05:46 03/31/19 05:15 Microbiology and Other Data: Microbiology 03/28/19 19:00 Nasal Screen MRSA (PCR) - Final Nasal Mrsa Not Detected Assess/Plan/Problems-Billing Assessment: Mr Paige is a 59yo M with PMH of obesity s/p RnY in 2013, type 2 DM, hypothyroidism, HTN, GERD, HLD, who presented to ED with c/o hematemesis, found to have anastomotic ulcer. - Patient Problems (1) Upper GI bleed Current Visit: Yes Status: Acute Code(s): K92.2 - GASTROINTESTINAL HEMORRHAGE, UNSPECIFIED SNOMED Code(s): 31298985 Comment: - EGD revealed 2 cm anastomotic ulcer at the GJ junction, with arterial squirt, s/p epinephrine injection and Endoclip. - did not seem to be actively bleeding 03/31 but ulcer was a high risk one. - Continue Protonix drip day # 3. Transition to po protonix in am. Follow up final GI recommendations (2) Acute blood loss anemia Current Visit: Yes Status: Acute Code(s): D62 - ACUTE POSTHEMORRHAGIC ANEMIA SNOMED Code(s): 072442411 Comment: - Hb dropped from 12 to 6.6. - Patient declined PRBC transfusion based on previous discussion with my colleague. he would agree with transfusion if repeat Hb<7.0. - Continue to monitor H/H q6h. - h/h today 04/01/19 8.4 (3) Hypothyroid Current Visit: Yes Status: Acute Code(s): E03.9 - HYPOTHYROIDISM, UNSPECIFIED SNOMED Code(s): 61250298 Comment: - Continue Levothyroxine 175 mcg daily. TSH 03/31 2.63 (4) Diabetes mellitus, type 2 Current Visit: Yes Status: Chronic Comment: - Chronically uncontrolled with A1c 9.0. - Continue Lantus 10 units Q12 and Lispro SS. (5) HTN (hypertension) Current Visit: Yes Status: Chronic Code(s): I10 - ESSENTIAL (PRIMARY) HYPERTENSION SNOMED Code(s): 02759205 Comment: - ARB and HCTZ was on hold in the setting of UGI bleed with soft BP. Will resume for am now that his BP slightly elevated - Continue to monitor. (6) DJD (degenerative joint disease) Current Visit: No Status: Chronic Code(s): M19.90 - UNSPECIFIED OSTEOARTHRITIS, UNSPECIFIED SITE SNOMED Code(s): 991309199 (7) GERD (gastroesophageal reflux disease) Current Visit: No Status: Chronic Code(s): K21.9 - GASTRO-ESOPHAGEAL REFLUX DISEASE WITHOUT ESOPHAGITIS SNOMED Code(s): 891684271 (8) HLD (hyperlipidemia) Current Visit: No Status: Chronic Code(s): E78.5 - HYPERLIPIDEMIA, UNSPECIFIED SNOMED Code(s): 21679873 Comment: Continue statin. Status and Disposition: Inpatient. Continue to monitor in ICU.
[2019-04-01] MEDS: Atorvastatin* 10 MG TAB PO SCH (17:31)
[2019-04-01] MEDS ORDERED: Acetaminophen TAB* 325 MG PO PRN (19:58)
[2019-04-01] MEDS ORDERED: Acetaminophen TAB* 325 MG ONE (20:30)
[2019-04-02] MEDS: Pantoprazole* 80 mg IN NS 80 MG/250 ML BAG IV SCH ×2 (01:21→12:14)
[2019-04-02] MEDS: Insulin GLARGINE(*) 1 UNITS UNIT SUBCUT SCH (05:19)
[2019-04-02 06:40] LABS: ABS Eosinophils 0.1 10^3/ul (0-0.6); ABS Monocytes 0.6 10^3/ul (0-0.8); ABS Neutrophils 4.2 10^3/ul (1.5-7.7); Eosinophil % 2.4 %; Hematocrit 24 % (42-52); Hemoglobin 8.5 g/dL (14.0-18.0); Mean Corpuscular HGB Conc 35 g/dL (31-36); Mean Corpuscular Hemoglobin 30 pg (27-31); Mean Corpuscular Volume 87 fL (80-94); Mean Platelet Volume 8.5 fL (7.4-10.4); Nucleated Red Blood Cells % 0.1; Platelet Count 200 10^3/uL (150-450); Red Blood Count 2.79 10^6 /uL (4.18-5.48); Red Cell Distribution Width 13 % (10-15)
[2019-04-02 06:55] LABS: BUN/Creatinine Ratio 18.2 (8-20); Calcium 7.8 mg/dL (8.6-10.3); EGFR African American 124.7 (>60); EGFR Non-African American 103.1 (>60); Phosphorus 2.2 mg/dL (2.5-5.0); Potassium 3.6 mmol/L (3.5-5.0)
[2019-04-02] MEDS: Levothyroxine TAB* 175 MCG TAB PO SCH (07:22)
[2019-04-02] MEDS: Insulin LISPRO* 1 UNITS UNIT SUBCUT SCH ×2 (08:14→12:14)
[2019-04-02] MEDS ORDERED: Losartan TAB* 25 MG PO SCH (09:00)
[2019-04-02] MEDS ORDERED: Hydrochlorothiazide TAB* 25 MG PO SCH (09:00)
[2019-04-02] MEDS ORDERED: Pantoprazole TAB * 40 MG TAB PO SCH (10:00)
--- NOTE | 2019-04-02 13:39 | PN ---
Subjective Date of Service: 04/02/19 Interval History: patient seen awake, alert denies active bleed. H/H stable. Will discontinue his protonix drip. change to po protonix. awaiting further recommendations from GI. Past Medical History: Unchanged from Admission Objective Active Medications: Acetaminophen (Tylenol Tab*) 650 mg PO Q6H PRN PRN Reason: PAIN - MILD Last Admin: 04/01/19 20:32 Dose: 650 mg Atorvastatin Calcium (Lipitor*) 5 mg PO QPM [facility] Last Admin: 04/01/19 17:31 Dose: 5 mg Dextrose (Dextrose 50% Vial 50 Ml*) 25 ml IV PUSH .FOR FS < 60 - SS PRN PRN Reason: FS < 60 Hydrochlorothiazide (Hydrodiuril Tab*) 12.5 mg PO DAILY [facility] Last Admin: 04/02/19 08:13 Dose: 12.5 mg Insulin Glargine (Lantus(*)) 10 units SUBCUT Q12H [facility] Last Admin: 04/02/19 05:19 Dose: 10 unit Insulin Human Lispro (Humalog*) 0 units SUBCUT ACHS [facility]; Protocol Last Admin: 04/02/19 12:14 Dose: Not Given Levothyroxine Sodium (Synthroid Tab*) 175 mcg PO DAILY@0600 [facility] Last Admin: 04/02/19 07:22 Dose: 175 mcg Losartan Potassium (Cozaar Tab*) 50 mg PO DAILY [facility] Last Admin: 04/02/19 08:14 Dose: 50 mg Pantoprazole Sodium (Protonix Tab*) 40 mg PO BID [facility] Last Admin: 04/02/19 12:19 Dose: 40 mg Zolpidem Tartrate (Ambien Tab*) 10 mg PO BEDTIME PRN; Protocol PRN Reason: SLEEP Vital Signs - 8 hr 04/02/19 04/02/19 04/02/19 07:25 08:00 10:59 Temperature 98.0 F 97.7 F Pulse Rate 79 77 Respiratory 16 18 18 Rate Blood Pressure 141/69 136/58 (mmHg) O2 Sat by Pulse 100 100 Oximetry 04/02/19 11:35 Temperature 98.9 F Pulse Rate 69 Respiratory 16 Rate Blood Pressure 109/48 (mmHg) O2 Sat by Pulse 100 Oximetry Oxygen Devices in Use Now: None Appearance: awake, alert. no distress Eyes: No Scleral Icterus, - - EOMI Ears/Nose/Mouth/Throat: NL Teeth, Lips, Gums, Mucous Membranes Moist Neck: NL Appearance and Movements; NL JVP, Trachea Midline Respiratory: Symmetrical Chest Expansion and Respiratory Effort, Clear to Auscultation Cardiovascular: NL Sounds; No Murmurs; No JVD Abdominal: NL Sounds; No Tenderness; No Distention Skin: No Rash or Ulcers Neurological: Alert and Oriented x 3 Result Diagrams: 04/02/19 06:10 04/02/19 06:10 Microbiology and Other Data: Microbiology 03/28/19 19:00 Nasal Screen MRSA (PCR) - Final Nasal Mrsa Not Detected Assess/Plan/Problems-Billing Assessment: Mr Paige is a 59yo M with PMH of obesity s/p RnY in 2013, type 2 DM, hypothyroidism, HTN, GERD, HLD, who presented to ED with c/o hematemesis, found to have anastomotic ulcer. - Patient Problems (1) Upper GI bleed Current Visit: Yes Status: Acute Code(s): K92.2 - GASTROINTESTINAL HEMORRHAGE, UNSPECIFIED SNOMED Code(s): 76741072 Comment: - EGD revealed 2 cm anastomotic ulcer at the GJ junction, with arterial squirt, s/p epinephrine injection and Endoclip. - did not seem to be actively bleeding 03/31 but ulcer was a high risk one. - completed Protonix drip day # 3. Transition to po protonix today. Follow up final GI recommendations if ok to discharge today unless they are planing for repeat EGD? (2) Acute blood loss anemia Current Visit: Yes Status: Acute Code(s): D62 - ACUTE POSTHEMORRHAGIC ANEMIA SNOMED Code(s): 856128207 Comment: - Hb dropped from 12 to 6.6. - Patient declined PRBC transfusion based on previous discussion with my colleague. he would agree with transfusion if repeat Hb<7.0. - Continue to monitor H/H q6h. - h/h remains 8.5/24 (3) Hypothyroid Current Visit: Yes Status: Acute Code(s): E03.9 - HYPOTHYROIDISM, UNSPECIFIED SNOMED Code(s): 13017681 Comment: - Continue Levothyroxine 175 mcg daily. TSH 03/31 2.63 (4) Diabetes mellitus, type 2 Current Visit: Yes Status: Chronic Comment: - Chronically uncontrolled with A1c 9.0. - Continue Lantus 10 units Q12 and Lispro SS. (5) HTN (hypertension) Current Visit: Yes Status: Chronic Code(s): I10 - ESSENTIAL (PRIMARY) HYPERTENSION SNOMED Code(s): 20126704 Comment: - ARB and HCTZ was on hold in the setting of UGI bleed with soft BP. Will resume for am now that his BP slightly elevated - Continue to monitor. (6) DJD (degenerative joint disease) Current Visit: No Status: Chronic Code(s): M19.90 - UNSPECIFIED OSTEOARTHRITIS, UNSPECIFIED SITE SNOMED Code(s): 210755029 (7) GERD (gastroesophageal reflux disease) Current Visit: No Status: Chronic Code(s): K21.9 - GASTRO-ESOPHAGEAL REFLUX DISEASE WITHOUT ESOPHAGITIS SNOMED Code(s): 864998208 (8) HLD (hyperlipidemia) Current Visit: No Status: Chronic Code(s): E78.5 - HYPERLIPIDEMIA, UNSPECIFIED SNOMED Code(s): 70978366 Comment: Continue statin. Status and Disposition: Inpatient. Continue to monitor in ICU.
[2019-04-02 15:02] VITALS: BP 108/49
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
== END 2019-04-02 16:00 | disposition home or self-care (01) | DRG 378 ==
LOC: ED 13:02 → MEDTELE 14:32 → ICU 18:22 → MED 03-31 17:09
PROVIDERS: ADMIT Internal Medicine; ATTEND Internal Medicine
PROC: 0W3P8ZZ Control Bleeding in Gastrointestinal Tract, Via Natural or Artificial Opening Endoscopic (ICD-10-PCS; principal; 2019-03-28)
PROC: 30233N1 Transfusion of Nonautologous Red Blood Cells into Peripheral Vein, Percutaneous Approach (ICD-10-PCS; 2019-03-30)
DX: K28.4 Chronic or unspecified gastrojejunal ulcer with hemorrhage (principal); D62 Acute posthemorrhagic anemia; K92.0 Hematemesis; K92.1 Melena; E11.9 Type 2 diabetes mellitus without complications; E03.9 Hypothyroidism, unspecified; M19.90 Unspecified osteoarthritis, unspecified site; I10 Essential (primary) hypertension; K21.9 Gastro-esophageal reflux disease without esophagitis; E78.5 Hyperlipidemia, unspecified; E66.9 Obesity, unspecified; Z68.32 Body mass index [BMI] 32.0-32.9, adult; Z68.34 Body mass index [BMI] 34.0-34.9, adult; Z98.84 Bariatric surgery status; Z79.4 Long term (current) use of insulin; Z79.899 Other long term (current) drug therapy; Z83.3 Family history of diabetes mellitus; Z82.49 Family history of ischemic heart disease and other diseases of the circulatory system; Z80.6 Family history of leukemia; Z80.0 Family history of malignant neoplasm of digestive organs
CPT/HCPCS: 36415; 80048; 80053; 81003; 83036; 83605; 83690; 83735; 84100; 84443; 85014; 85018; 85025; 86140; 86850; 86900; 86901; 86922; 87641; 96374; 99156; 99157; 99283; A9270-GY; J2250; J3010; J3480; P9040

== ENCOUNTER 2019-11-27 13:09 | Inpatient (IN) ==
[2019-11-27] MEDS ORDERED: THIAMINE IV ONE (13:20)
[2019-11-27] MEDS ORDERED: MULTIPLE VITAMIN IV ONE (13:20)
[2019-11-27] MEDS ORDERED: Ondansetron 4 mg VIAL 2 MG/ML 2 ml VIAL IV ONE (13:20)
[2019-11-27] MEDS ORDERED: [UNRECOGNIZED DRUG - OTHER] IV ONE (13:20)
[2019-11-27] MEDS ORDERED: FOLIC ACID IV ONE (13:20)
[2019-11-27] MEDS ORDERED: NS 0.9% 1000 ml BAG 1,000 ML IV ONE ×2 (13:20→15:11)
[2019-11-27 13:50] LABS: ABS Lymphocytes 0.2 10^3/ul (1.0-4.8); ABS Monocytes 0.2 10^3/ul (0-0.8); Eosinophil % 0.1 %; Hematocrit 41 % (42-52); Hemoglobin 13.9 g/dL (14.0-18.0); Lymphocyte % 1.9 %; Mean Corpuscular HGB Conc 34 g/dL (31-36); Mean Corpuscular Hemoglobin 30 pg (27-31); Mean Corpuscular Volume 87 fL (80-94); Platelet Count 157 10^3/uL (150-450); Red Blood Count 4.65 10^6 /uL (4.18-5.48); Red Cell Distribution Width 13 % (10-15); White Blood Count 9.2 10^3/uL (3.5-10.8)
[2019-11-27 14:07] LABS: ALT 27 U/L (7-52); AST 26 U/L (13-39); Albumin 3.9 g/dL (3.2-5.2); Alkaline Phosphatase 159 U/L (34-104); Anion Gap 13 mmol/L (2-11); BUN/Creatinine Ratio 23.4 (8-20); Blood Urea Nitrogen 34 mg/dL (6-24); C Reactive Protein 338.69 mg/L (<8.01); CO2 Carbon Dioxide 24 mmol/L (22-32); Calcium 9.7 mg/dL (8.6-10.3); Chloride 96 mmol/L (101-111); EGFR African American 60.1 (>60); EGFR Non-African American 49.6 (>60); Globulin 3.9 g/dL (2-4); Glucose 303 mg/dL (70-100); Magnesium 1.8 mg/dL (1.9-2.7); Potassium 3.8 mmol/L (3.5-5.0); Sodium 133 mmol/L (135-145); Total Protein 7.8 g/dL (6.4-8.9)
[2019-11-27] MEDS ORDERED: Iodixanol (CONTRAST) 320 MG/ML 100 ML SDV IV ONE (14:09)
[2019-11-27] MEDS ORDERED: Insulin REGULAR 100 unit/ml(*) SUBCUT ONE (14:19)
[2019-11-27] MEDS ORDERED: Piperacillin/Tazobac ADVAN(*) 3.375 GM in NS 0.9% 100 ml BAG 100 ML IVPB ONE (14:52)
[2019-11-27] MEDS ORDERED: HYDROmorphone 1 MG/1 ML SYRINGE IV SLOW PU PRN (16:40)
[2019-11-27] MEDS ORDERED: Ondansetron 4 mg VIAL 2 MG/ML 2 ml VIAL IV PRN (16:40)
[2019-11-27] MEDS ORDERED: Dextrose 50% Syringe 50 ml 25 GM/50 ML SYRINGE IV PUSH PRN (16:51)
[2019-11-27] MEDS ORDERED: Pantoprazole VIAL 40 MG VIAL IV PRN (16:54)
[2019-11-27] MEDS: Piperacillin/Tazobactam VIAL*) 3.375 GM in NS 0.9% 100 ml BAG 100 ML IVPB SCH (21:10)
[2019-11-27] MEDS: NS 0.9% 1000 ml BAG 1,000 ML IV SCH (21:10)
[2019-11-28 01:57] LABS: Urine Appearance Cloudy; Urine Bilirubin Negative (Negative); Urine Blood Negative (Negative); Urine Color Amber; Urine Glucose 3+(>=500 mg/dL) (Negative); Urine Ketones Trace (Negative); Urine Nitrite Negative (Negative); Urine Protein 1+(30 mg/dL) (Negative); Urine Specific Gravity 1.047 (1.010-1.030); Urine Urobilinogen Positive (Negative)
[2019-11-28 02:01] LABS: Urine Bacteria Absent (Absent); Urine Red Blood Cell Absent (Absent); Urine White Blood Cell Trace(0-5/hpf) (Absent)
[2019-11-28] MEDS: Insulin LISPRO 100 units/ml(*) SUBCUT PRN ×2 (02:48→09:34)
[2019-11-28] MEDS: Piperacillin/Tazobactam VIAL*) 3.375 GM in NS 0.9% 100 ml BAG 100 ML IVPB SCH ×3 (04:20→21:17)
[2019-11-28 05:16] LABS: Hematocrit 33 % (42-52); Hemoglobin 11.3 g/dL (14.0-18.0); Mean Corpuscular HGB Conc 34 g/dL (31-36); Mean Corpuscular Hemoglobin 29 pg (27-31); Mean Corpuscular Volume 86 fL (80-94); Mean Platelet Volume 8.5 fL (7.4-10.4); Platelet Count 101 10^3/uL (150-450); Red Blood Count 3.86 10^6 /uL (4.18-5.48); Red Cell Distribution Width 13 % (10-15); White Blood Count 12.6 10^3/uL (3.5-10.8)
[2019-11-28] MEDS: NS 0.9% 1000 ml BAG 1,000 ML IV SCH ×2 (05:27→21:12)
[2019-11-28 05:42] LABS: Albumin 3.1 g/dL (3.2-5.2); BUN/Creatinine Ratio 26.6 (8-20); Calcium 8.3 mg/dL (8.6-10.3); EGFR Non-African American 59.5 (>60); Globulin 3.1 g/dL (2-4); Potassium 3.3 mmol/L (3.5-5.0); Total Bilirubin 0.9 mg/dL (0.2-1.0); Total Protein 6.2 g/dL (6.4-8.9)
[2019-11-28 06:35] LABS: ABS Basophils 0.1 10^3/ul (0-0.2); ABS Lymphocytes 0.3 10^3/ul (1.0-4.8); ABS Monocytes 0.7 10^3/ul (0-0.8); Eosinophil % 0.1 %; Lymphocyte % 2.7 %
[2019-11-28] MEDS ORDERED: Insulin GLARGINE 100 un/ml (*) 10 ml VIAL SUBCUT ONE (11:55)
[2019-11-28] MEDS ORDERED: Midazolam 2 mg/2 ml VIAL 1 mg/ml 2 ml VIAL (2 mg) ONE (13:07)
[2019-11-28] MEDS ORDERED: fentaNYL 100 mcg/2 ml 50 MCG/ML VIAL ONE (13:07)
[2019-11-28] MEDS ORDERED: Flumazenil 0.5 mg/5 ml 0.1 MG/ML 5 ml VIAL ONE (13:07)
[2019-11-28] MEDS ORDERED: Naloxone 0.4 mg VIAL 0.4 mg/ml 1 ml VIAL ONE (13:07)
[2019-11-28 13:09] LABS: TSH (Thyroid Stimulating Horm) 0.77 mcIU/mL (0.34-5.60)
[2019-11-28 13:11] LABS: Activated Partial Thrombo Time 27.9 seconds (26.0-38.0); INR 1.45 (0.82-1.09)
[2019-11-28 13:11] LABS: Free T4 1.17 ng/dL (0.61-1.12)
[2019-11-28] MEDS: Insulin LISPRO 100 units/ml(*) SUBCUT SCH ×4 (15:35→21:32)
[2019-11-28] MEDS: Potassium Chlor 20 meq TAB.ER PO SCH ×2 (15:42→21:26)
[2019-11-29] MEDS: Insulin LISPRO 100 units/ml(*) SUBCUT SCH ×5 (01:20→21:26)
[2019-11-29 04:55] LABS: ABS Lymphocytes 0.7 10^3/ul (1.0-4.8); ABS Monocytes 0.5 10^3/ul (0-0.8); Eosinophil % 0.2 %; Hematocrit 31 % (42-52); Hemoglobin 10.7 g/dL (14.0-18.0); Lymphocyte % 7.1 %; Mean Corpuscular HGB Conc 35 g/dL (31-36); Mean Corpuscular Hemoglobin 30 pg (27-31); Mean Corpuscular Volume 86 fL (80-94); Mean Platelet Volume 10.3 fL (7.4-10.4); Platelet Count 76 10^3/uL (150-450); Red Blood Count 3.56 10^6 /uL (4.18-5.48); Red Cell Distribution Width 14 % (10-15); White Blood Count 9.4 10^3/uL (3.5-10.8)
[2019-11-29 05:00] LABS: Albumin 2.9 g/dL (3.2-5.2); BUN/Creatinine Ratio 37.9 (8-20); Calcium 8.1 mg/dL (8.6-10.3); EGFR African American 77.7 (>60); EGFR Non-African American 64.2 (>60); Magnesium 2.1 mg/dL (1.9-2.7); Potassium 4.1 mmol/L (3.5-5.0); Total Bilirubin 0.7 mg/dL (0.2-1.0); Total Protein 5.9 g/dL (6.4-8.9)
[2019-11-29] MEDS: NS 0.9% 1000 ml BAG 1,000 ML IV SCH (05:13)
[2019-11-29] MEDS: Piperacillin/Tazobactam VIAL*) 3.375 GM in NS 0.9% 100 ml BAG 100 ML IVPB SCH ×3 (05:13→21:29)
[2019-11-29] MEDS: Potassium Chlor 20 meq TAB.ER PO SCH (09:33)
[2019-11-29] MEDS: Insulin GLARGINE 100 un/ml (*) 10 ml VIAL SUBCUT SCH (09:45)
[2019-11-30] MEDS: Piperacillin/Tazobactam VIAL*) 3.375 GM in NS 0.9% 100 ml BAG 100 ML IVPB SCH (04:59)
[2019-11-30 07:29] VITALS: BP 125/67
[2019-11-30 08:05] LABS: ABS Basophils 0.1 10^3/ul (0-0.2); ABS Eosinophils 0.1 10^3/ul (0-0.6); ABS Lymphocytes 0.8 10^3/ul (1.0-4.8); ABS Monocytes 0.3 10^3/ul (0-0.8); Eosinophil % 1.4 %; Hematocrit 37 % (42-52); Hemoglobin 12.5 g/dL (14.0-18.0); Mean Corpuscular HGB Conc 34 g/dL (31-36); Mean Corpuscular Hemoglobin 30 pg (27-31); Mean Corpuscular Volume 87 fL (80-94); Mean Platelet Volume 10.1 fL (7.4-10.4); Platelet Count 98 10^3/uL (150-450); Red Blood Count 4.22 10^6 /uL (4.18-5.48); Red Cell Distribution Width 14 % (10-15); White Blood Count 7.7 10^3/uL (3.5-10.8)
[2019-11-30 08:24] LABS: BUN/Creatinine Ratio 36.4 (8-20); Calcium 8.7 mg/dL (8.6-10.3); EGFR African American 106.9 (>60); EGFR Non-African American 88.3 (>60); Potassium 3.7 mmol/L (3.5-5.0)
[2019-11-30] MEDS: Insulin GLARGINE 100 un/ml (*) 10 ml VIAL SUBCUT SCH (09:27)
[2019-11-30] MEDS: Insulin LISPRO 100 units/ml(*) SUBCUT SCH (09:27)
== END 2019-11-30 12:24 | disposition home or self-care (01) | DRG 872 ==
LOC: ED 13:09 → SSU 16:40 → ICU 11-28 11:37 → SSU 11-29 15:21
PROVIDERS: ADMIT Internal Medicine; ATTEND Surgery

== ENCOUNTER 2019-12-02 07:53 | Observation (INO) ==
[~2019-12-02 07:53] MED LIST: DiMENhydriNATE IV 50 mg/ml 1 ml VIAL IV PUSH ONE; Famotidine IV 10 MG/ML 2 ml VIAL (20 mg) IV ONE; Lactated Ringers 1000 ml BAG 1,000 ML IV SCH
[2019-12-02] MEDS ORDERED: Famotidine IV 10 MG/ML 2 ml VIAL (20 mg) ONE (08:06)
[2019-12-02] MEDS ORDERED: Heparin 5000 UNITS/ML VIAL(*) 1 ml vial ONE (08:06)
[2019-12-02] MEDS ORDERED: ceFOXitin 2 GM IVPREMIX (*) 2 GM/50 ML BAG ONE ×2 (08:06→13:11)
[2019-12-02] MEDS ORDERED: HYDROcodone/ACETAMIN 5/325 mg TAB PO PRN (08:38)
[2019-12-02] MEDS ORDERED: oxyCODONE/Acetamin 5/325 mg TAB PO PRN (08:38)
[2019-12-02] MEDS ORDERED: Naloxone 0.4 mg VIAL 0.4 mg/ml 1 ml VIAL IV PRN (08:38)
[2019-12-02] MEDS ORDERED: Prochlorperazine 5 mg/ml 2 ml VIAL (10 mg) IV PRN (08:38)
[2019-12-02] MEDS ORDERED: DiMENhydriNATE IV 50 mg/ml 1 ml VIAL ONE (08:43)
[2019-12-02] MEDS ORDERED: Insulin LISPRO 100 units/ml(*) SUBCUT ONE ×3 (09:00→14:08)
[2019-12-02] MEDS ORDERED: Bupivacaine 0.25% EPI 200,000 30 ML SDV ONE (09:10)
[2019-12-02] MEDS ORDERED: Midazolam 2 mg/2 ml VIAL 1 mg/ml 2 ml VIAL (2 mg) ONE (10:11)
[2019-12-02] MEDS ORDERED: Rocuronium 50 mg VIAL 10 mg/ml 5 ml VIAL (50 mg) ONE ×2 (10:11→12:06)
[2019-12-02] MEDS ORDERED: Lidocaine 2% PF 5 ML VIAL ONE (10:11)
[2019-12-02] MEDS ORDERED: Propofol 10 MG/ML 20 ML BTL ONE ×2 (10:11→10:33)
[2019-12-02] MEDS ORDERED: fentaNYL 100 mcg/2 ml 50 MCG/ML VIAL ONE ×3 (10:11→15:01)
[2019-12-02] MEDS ORDERED: Succinylcholine 200 mg VIAL 20 mg/ml 10 ml VIAL (200 mg) ONE (10:29)
[2019-12-02] MEDS ORDERED: EPHEDrine (Pressors) 50 MG/ML VIAL ONE (10:49)
[2019-12-02] MEDS ORDERED: Phenylephrine IV 10 MG/ML 1 ml VIAL ONE (10:53)
[2019-12-02] MEDS ORDERED: Ondansetron 4 mg VIAL 2 MG/ML 2 ml VIAL ONE (12:46)
[2019-12-02] MEDS ORDERED: Sugammadex 500 MG/5 ML 5 ml VIAL IV PUSH ONE (14:20)
[2019-12-02] MEDS ORDERED: Ondansetron 4 mg VIAL 2 MG/ML 2 ml VIAL IV PRN (14:46)
[2019-12-02] MEDS ORDERED: Insulin LISPRO 100 units/ml(*) SUBCUT PRN (14:52)
[2019-12-02] MEDS ORDERED: Dextrose 50% Syringe 50 ml 25 GM/50 ML SYRINGE IV PUSH PRN (14:52)
[2019-12-02] MEDS: fentaNYL 100 mcg/2 ml 50 MCG/ML VIAL IV PRN ×2 (15:02→15:08)
[2019-12-02] MEDS ORDERED: HYDROmorphone 0.5 MG/0.5 ML SYRINGE IV SLOW PU PRN (16:58)
[2019-12-02] MEDS: NS 0.9% 1000 ml BAG 1,000 ML IV SCH (17:17)
[2019-12-02] MEDS ORDERED: ZOSYN 3.375 GM x ONE DOSE over 30 miuntes IV (17:30)
[2019-12-02] MEDS: Insulin LISPRO 100 units/ml(*) SUBCUT SCH ×2 (18:05→21:04)
[2019-12-02] MEDS: Piperacillin/Tazobactam VIAL*) 3.375 GM in NS 0.9% 100 ml BAG 100 ML IVPB SCH (21:06)
[2019-12-03] MEDS: NS 0.9% 1000 ml BAG 1,000 ML IV SCH (01:30)
[2019-12-03] MEDS: Piperacillin/Tazobactam VIAL*) 3.375 GM in NS 0.9% 100 ml BAG 100 ML IVPB SCH (05:26)
[2019-12-03 05:55] LABS: ABS Monocytes 0.8 10^3/ul (0-0.8); Eosinophil % 0.5 %; Hematocrit 29 % (42-52); Hemoglobin 10.4 g/dL (14.0-18.0); Lymphocyte % 9.8 %; Mean Corpuscular HGB Conc 36 g/dL (31-36); Mean Corpuscular Hemoglobin 30 pg (27-31); Mean Corpuscular Volume 84 fL (80-94); Mean Platelet Volume 9.5 fL (7.4-10.4); Platelet Count 201 10^3/uL (150-450); Red Blood Count 3.49 10^6 /uL (4.18-5.48); Red Cell Distribution Width 13 % (10-15); White Blood Count 9.8 10^3/uL (3.5-10.8)
[2019-12-03 06:26] LABS: BUN/Creatinine Ratio 16.1 (8-20); EGFR African American 108.3 (>60); EGFR Non-African American 89.5 (>60); Potassium 3.4 mmol/L (3.5-5.0)
[2019-12-03] MEDS: Insulin LISPRO 100 units/ml(*) SUBCUT SCH (07:19)
[2019-12-03 07:47] VITALS: BP 122/52
== END 2019-12-03 11:35 | disposition home or self-care (01) ==
LOC: SSU 07:53 → OR 07:53
PROVIDERS: ADMIT Surgery; ATTEND Surgery

== ENCOUNTER 2022-06-15 07:46 | Observation (INO) ==
[~2022-06-15 07:46] MED LIST changes: +Buffered Lidocaine 1% SYRIN 1 ml INTRADERM ONE; -DiMENhydriNATE IV 50 mg/ml 1 ml VIAL IV PUSH ONE; -Famotidine IV 10 MG/ML 2 ml VIAL (20 mg) IV ONE
[2022-06-15] MEDS ORDERED: ceFAZolin *3* GM in NS PREMIX 3 GM/100 ML BAG IV ONE (08:22)
[2022-06-15] MEDS ORDERED: Midazolam 2 mg/2 ml VIAL 1 mg/ml 2 ml VIAL (2 mg) ONE (08:43)
[2022-06-15] MEDS ORDERED: Propofol 10 MG/ML 20 ML BTL ONE (08:43)
[2022-06-15] MEDS ORDERED: Lidocaine 2% PF 5 ML VIAL ONE (08:44)
[2022-06-15] MEDS ORDERED: Rocuronium 50 mg VIAL 10 mg/ml 5 ml VIAL (50 mg) ONE (09:51)
[2022-06-15] MEDS ORDERED: Ketamine HCL 50 mg/ml 10 ml VIAL (500 MG) ONE (09:56)
[2022-06-15] MEDS ORDERED: fentaNYL 250 mcg/5 ml 50 MCG/ML 5 ml VIAL (250 MCG) ONE (09:56)
[2022-06-15] MEDS ORDERED: ROPIVACAINE 5 MG/ML 30 ML BTL (0.5%) ONE (10:35)
[2022-06-15] MEDS ORDERED: Naloxone 0.4 mg VIAL 0.4 mg/ml 1 ml VIAL IV PRN (12:02)
[2022-06-15] MEDS ORDERED: HYDROmorphone 1 MG/1 ML SYRINGE IV PRN (12:02)
[2022-06-15] MEDS ORDERED: fentaNYL 100 mcg/2 ml 50 MCG/ML VIAL IV PRN (12:02)
[2022-06-15] MEDS ORDERED: Dexamethasone IV 4 MG/ML VIAL 1 ml VIAL ONE (12:16)
[2022-06-15] MEDS ORDERED: Sugammadex 500 MG/5 ML 5 ml VIAL IV PUSH ONE (12:16)
[2022-06-15] MEDS ORDERED: Acetaminophen IV 1 GM/100ML 1,000 MG/100 ML BAG IV ONE (12:16)
[2022-06-15] MEDS ORDERED: Sterile Water for Inj 10 ML ONE (12:16)
[2022-06-15] MEDS ORDERED: Ondansetron 4 mg VIAL 2 MG/ML 2 ml VIAL ONE (12:16)
[2022-06-15] MEDS ORDERED: Ondansetron ODT 4 mg TAB 4 MG TAB PO PRN (12:28)
[2022-06-15] MEDS ORDERED: Lactulose 30 ml UDC PO PRN (12:28)
[2022-06-15] MEDS ORDERED: Morphine 2 MG/ML SYRINGE IV PRN (12:28)
[2022-06-15] MEDS ORDERED: Ondansetron 4 mg VIAL 2 MG/ML 2 ml VIAL IV PRN (12:28)
[2022-06-15] MEDS ORDERED: Magnesium Hydroxide LIQ 30 ML UDC PO PRN (12:28)
[2022-06-15] MEDS ORDERED: Glycopyrrolate IV 0.2 MG/ML 1 ML VIAL ONE (12:40)
[2022-06-15] MEDS ORDERED: HYDROmorphone 1 MG/1 ML SYRINGE ONE (14:35)
[2022-06-15] MEDS ORDERED: Dextrose 50% Syringe 50 ml 25 GM/50 ML SYRINGE IV PUSH PRN (14:48)
[2022-06-15] MEDS ORDERED: fentaNYL 100 mcg/2 ml 50 MCG/ML VIAL ONE (15:03)
[2022-06-15] MEDS: Lactated Ringers 1000 ml BAG 1,000 ML IV SCH (17:34)
[2022-06-15] MEDS: ceFAZolin 1 GM ADVAN 1 GM in NS 0.9% 50 ML 50 ML IVPB SCH (20:35)
[2022-06-15] MEDS ORDERED: Insulin GLARGINE 100 un/ml 10 ml VIAL SUBCUT SCH (21:00)
[2022-06-15] MEDS: Magnesium Hydroxide LIQ 30 ML UDC PO SCH (22:04)
[2022-06-16] MEDS: Lactated Ringers 1000 ml BAG 1,000 ML IV SCH (03:48)
[2022-06-16] MEDS: ceFAZolin 1 GM ADVAN 1 GM in NS 0.9% 50 ML 50 ML IVPB SCH ×2 (04:04→12:13)
[2022-06-16 05:58] LABS: Hematocrit 33 % (42-52); Hemoglobin 11.1 g/dL (14.0-18.0); Mean Platelet Volume 8.5 fL (7.4-10.4); Platelet Count 187 10^3/uL (150-450)
[2022-06-16 06:22] LABS: Potassium 3.3 mmol/L (3.5-5.0)
[2022-06-16 06:27] LABS: eGFR CKD-EPI 84.6 (>60)
[2022-06-16] MEDS ORDERED: Vitamin THERAPEUTIC TAB PO SCH (09:00)
[2022-06-16] MEDS ORDERED: Insulin GLARGINE 100 un/ml 10 ml VIAL SUBCUT SCH (09:00)
[2022-06-16] MEDS: Magnesium Hydroxide LIQ 30 ML UDC PO SCH (09:07)
[2022-06-16] MEDS ORDERED: Potassium Chlor 20 meq TAB.ER PO ONE (09:36)
[2022-06-16] MEDS ORDERED: IRBESARTAN 150 MG PO SCH ×3 (11:00→12:30)
[2022-06-16 12:03] VITALS: BP 128/69
== END 2022-06-16 14:08 | disposition home or self-care (01) ==
LOC: SSU 07:46 → OR 07:46
PROVIDERS: ADMIT Orthopaedic Surgery Adult Reconstructive Orthopaedic Surgery; ATTEND Orthopaedic Surgery Adult Reconstructive Orthopaedic Surgery

== ENCOUNTER 2024-05-13 15:36 | Observation (INO) ==
[2024-05-13 16:42] LABS: Hematocrit 38.7 % (38-53); Hemoglobin 13.1 g/dL (13.2-16.3); Mean Corpuscular Hemoglobin 29.5 pg (27-33); Mean Corpuscular Hgb Conc 33.9 g/dL (31-36); Mean Corpuscular Volume 86.9 fL (80-97); Mean Platelet Volume 8.6 fL (7.5-11.2); Platelet Count 237 10^3/uL (150-450); Red Blood Count 4.46 10^6/uL (4.06-5.63); Red Cell Distribution Width 13.6 % (12-17); White Blood Count 12.4 10^3/uL (3.6-10.2)
[2024-05-13 17:28] LABS: Albumin 4.2 g/dL (3.2-5.2); Albumin/Globulin Ratio 1.5 (1-3); C Reactive Protein 73.84 mg/L (<8.01); Creatinine, Serum 1.03 mg/dL (0.67-1.17); Globulin 2.8 g/dL (2-4); Potassium 3.8 mmol/L (3.5-5.0); Total Bilirubin 0.7 mg/dL (0.2-1.0); eGFR CKD-EPI 80.6 (>60)
[2024-05-13] MEDS: Cefepime 2 GM in Dextrose 2 GM/50 ML BAG IV ONE (17:40)
[2024-05-13] MEDS ORDERED: Vancomycin 2,000 MG in NS 0.9% 250 ml 250 ML IVPB SCH (18:00)
[2024-05-13 18:26] LABS: ABS Basophils 0.1 10^3/uL (0.0-0.1); ABS Eosinophils 0.1 10^3/uL (0.0-0.5); ABS Lymphocytes 1.4 10^3/uL (1.0-4.8); ABS Neutrophils 9.9 10^3/uL (1.5-7.6); ABS Nucleated RBC 0.01 10^3/ul; Eosinophil % 0.6 %; Lymphocyte % 11.2 %; Nucleated Red Blood Cells % 0.1 %/100WBC (0.0-0.8)
[2024-05-13 18:27] LABS: RBC Morphology Normal (Normal)
[2024-05-13] MEDS ORDERED: Polyethylene Glycol 3350 17 GM PACKET PO PRN (18:34)
[2024-05-13] MEDS ORDERED: Dextrose 50% Syringe 50 ml 25 GM/50 ML SYRINGE IV PUSH PRN (18:46)
[2024-05-13] MEDS ORDERED: Vancomycin per Pharmacy 1 EA NOTE FOLLOW UP SCH (19:00)
[2024-05-13] MEDS: Vancomycin 2,000 MG in NS 0.9% 500 ml BAG 500 ML IVPB ONE (19:56)
[2024-05-13] MEDS: NS 0.9% 1000 ml BAG 1,000 ML IV SCH (19:56)
[2024-05-13 20:29] LABS: Urine Appearance Clear; Urine Bilirubin Negative (Negative); Urine Blood Negative (Negative); Urine Color Yellow; Urine Glucose Negative (Negative); Urine Ketones Trace (Negative); Urine Nitrite Negative (Negative); Urine Protein Trace (Negative); Urine Urobilinogen Negative (Negative); Urine pH 5.5 (5.0-8.0)
[2024-05-13] MEDS ORDERED: [UNRECOGNIZED DRUG - REMARK] PO SCH (21:00)
[2024-05-13] MEDS: Insulin GLARGINE 100 un/ml 10 ml VIAL SUBCUT SCH (22:09)
[2024-05-13] MEDS: Heparin 5000 UNITS/ML 1 mL VIAL SUBCUT SCH (22:10)
[2024-05-14] MEDS: Cefepime 2 GM in Dextrose 2 GM/50 ML BAG IV SCH ×3 (01:27→21:36)
[2024-05-14] MEDS: Vancomycin Trough Check NOTE FOLLOW UP ONE (05:51)
[2024-05-14 07:04] LABS: ABS Basophils 0.1 10^3/uL (0.0-0.1); ABS Eosinophils 0.1 10^3/uL (0.0-0.5); ABS Lymphocytes 0.9 10^3/uL (1.0-4.8); ABS Monocytes 0.8 10^3/uL (0.0-1.1); ABS Neutrophils 6.5 10^3/uL (1.5-7.6); Hematocrit 34.2 % (38-53); Hemoglobin 11.9 g/dL (13.2-16.3); Mean Corpuscular Hemoglobin 30.1 pg (27-33); Mean Corpuscular Hgb Conc 34.8 g/dL (31-36); Mean Corpuscular Volume 86.3 fL (80-97); Mean Platelet Volume 9.1 fL (7.5-11.2); Platelet Count 182 10^3/uL (150-450); Red Blood Count 3.96 10^6/uL (4.06-5.63); Red Cell Distribution Width 13.5 % (12-17); White Blood Count 8.4 10^3/uL (3.6-10.2)
[2024-05-14 07:09] LABS: Calcium 8.4 mg/dL (8.6-10.3); Creatinine, Serum 0.77 mg/dL (0.67-1.17); Potassium 3.2 mmol/L (3.5-5.0); eGFR CKD-EPI 99.4 (>60)
[2024-05-14] MEDS: Insulin GLARGINE 100 un/ml 10 ml VIAL SUBCUT SCH (08:06)
[2024-05-14] MEDS: Potassium Chlor 20 meq TAB.ER PO ONE (08:49)
[2024-05-14] MEDS: Vancomycin 1,500 MG in NS 0.9% 250 ml 250 ML IVPB SCH (08:49)
[2024-05-14] MEDS ORDERED: Vancomycin per Pharmacy 1 EA NOTE FOLLOW UP PRN (11:35)
[2024-05-14] MEDS ORDERED: Lidocaine 1% w EPI 1:200,000 SDV 30 ML VIAL ONE (17:50)
[2024-05-14] MEDS ORDERED: Midazolam 2 mg/2 ml VIAL 1 mg/ml 2 ml VIAL (2 mg) ONE (18:22)
[2024-05-14] MEDS ORDERED: Lidocaine 2% PF 5 ML VIAL ONE (18:26)
[2024-05-14] MEDS ORDERED: fentaNYL 100 mcg/2 ml 50 MCG/ML VIAL ONE (18:26)
[2024-05-14] MEDS ORDERED: Propofol 10 MG/ML 20 ML BTL ONE ×3 (18:26→18:58)
[2024-05-14] MEDS ORDERED: Ondansetron 4 mg VIAL 2 MG/ML 2 ml VIAL ONE (18:45)
[2024-05-14] MEDS ORDERED: Senna TAB 8.6 mg TAB PO PRN (20:37)
[2024-05-14] MEDS ORDERED: Morphine 2 MG/ML SYRINGE IV PRN (20:37)
[2024-05-14] MEDS ORDERED: Ondansetron 4 mg VIAL 2 MG/ML 2 ml VIAL IV PRN (20:37)
[2024-05-14] MEDS ORDERED: Ondansetron ODT 4 mg TAB 4 MG TAB PO PRN (20:37)
[2024-05-14] MEDS ORDERED: Magnesium Hydroxide LIQ 30 ML UDC PO PRN (20:37)
[2024-05-14] MEDS: Lactated Ringers 1000 ml BAG 1,000 ML IV SCH (21:36)
[2024-05-15 06:13] LABS: ABS Eosinophils 0.1 10^3/uL (0.0-0.5); ABS Lymphocytes 0.7 10^3/uL (1.0-4.8); ABS Monocytes 0.6 10^3/uL (0.0-1.1); ABS Neutrophils 3.4 10^3/uL (1.5-7.6); ABS Nucleated RBC 0.01 10^3/ul; Eosinophil % 1.9 %; Hematocrit 32.1 % (38-53); Hemoglobin 11.1 g/dL (13.2-16.3); Lymphocyte % 14.4 %; Mean Corpuscular Hemoglobin 29.8 pg (27-33); Mean Corpuscular Hgb Conc 34.7 g/dL (31-36); Mean Corpuscular Volume 85.9 fL (80-97); Mean Platelet Volume 8.8 fL (7.5-11.2); Nucleated Red Blood Cells % 0.2 %/100WBC (0.0-0.8); Platelet Count 179 10^3/uL (150-450); Red Blood Count 3.74 10^6/uL (4.06-5.63); Red Cell Distribution Width 13.6 % (12-17); White Blood Count 4.7 10^3/uL (3.6-10.2)
[2024-05-15 07:01] LABS: Calcium 8.3 mg/dL (8.6-10.3); Creatinine, Serum 0.7 mg/dL (0.67-1.17); Magnesium 2.1 mg/dL (1.9-2.7); Potassium 3.9 mmol/L (3.5-5.0); eGFR CKD-EPI 102.3 (>60)
[2024-05-15] MEDS ORDERED: Vancomycin Trough Check NOTE FOLLOW UP ONE (07:30)
[2024-05-15] MEDS: Vitamin THERAPEUTIC TAB PO SCH (09:29)
[2024-05-15] MEDS: Sulfur Hexaflouride MICROSPHR 25 MG VIAL IV PRN (10:59)
[2024-05-15] MEDS: Enoxaparin 40 MG/0.4 ML SYR SUBCUT SCH (12:44)
[2024-05-15] MEDS: ceFAZolin 2 GM PREMIX 2 GM/50 ML BAG IV SCH (18:27)
[2024-05-16 06:41] LABS: ABS Eosinophils 0.2 10^3/uL (0.0-0.5); ABS Lymphocytes 0.9 10^3/uL (1.0-4.8); ABS Monocytes 0.5 10^3/uL (0.0-1.1); ABS Neutrophils 2.8 10^3/uL (1.5-7.6); Eosinophil % 4.4 %; Hematocrit 33.1 % (38-53); Hemoglobin 11.4 g/dL (13.2-16.3); Lymphocyte % 21.3 %; Mean Corpuscular Hemoglobin 29.7 pg (27-33); Mean Corpuscular Hgb Conc 34.5 g/dL (31-36); Mean Corpuscular Volume 86.1 fL (80-97); Mean Platelet Volume 8.9 fL (7.5-11.2); Nucleated Red Blood Cells % 0.1 %/100WBC (0.0-0.8); Platelet Count 196 10^3/uL (150-450); Red Blood Count 3.85 10^6/uL (4.06-5.63); Red Cell Distribution Width 13.2 % (12-17); White Blood Count 4.4 10^3/uL (3.6-10.2)
[2024-05-16 07:34] LABS: Calcium 8.2 mg/dL (8.6-10.3); Creatinine, Serum 0.81 mg/dL (0.67-1.17); Magnesium 2.1 mg/dL (1.9-2.7); Potassium 3.8 mmol/L (3.5-5.0); eGFR CKD-EPI 97.8 (>60)
[2024-05-16] MEDS ORDERED: fentaNYL 100 mcg/2 ml 50 MCG/ML VIAL ONE (11:23)
[2024-05-16] MEDS ORDERED: Midazolam 5 mg/5 ml VIAL 1 mg/ml 5 ml VIAL (5 mg) ONE (11:24)
[2024-05-16] MEDS ORDERED: Flumazenil 0.5 mg/5 ml 0.1 MG/ML 5 ml VIAL ONE (11:24)
[2024-05-16] MEDS ORDERED: Naloxone 0.4 mg VIAL 0.4 mg/ml 1 ml VIAL ONE (11:24)
[2024-05-16] MEDS: fentaNYL 100 mcg/2 ml 50 MCG/ML VIAL IV SLOW PU ONE (15:50)
[2024-05-16] MEDS: Midazolam 10 mg/10 ml VIAL 1 mg/ml 10 ml VIAL (10 mg) IV SLOW PU ONE (15:51)
[2024-05-17] MEDS: ceFAZolin 2 GM PREMIX 2 GM/50 ML BAG IV SCH (10:10)
[2024-05-17 10:48] VITALS: BP 131/60
== END 2024-05-17 14:21 | disposition home or self-care (01) ==
LOC: EDHOLD 15:36 → ED 15:36 → SUATTDRO 18:34 → SSU 05-14 00:57
PROVIDERS: ADMIT Family Medicine; ATTEND Internal Medicine